=== PATIENT | male | born 1955 | race Caucasian/White ===

== ENCOUNTER 2016-05-30 00:22 | Day surgery (SDC) | payer BC ==
[~2016-05-30] VITALS: Ht 188 cm; Wt 102.1 kg
[2016-05-30] MEDS ORDERED: LIDOCAINE 2% JELLY 30 ML As Ordered ONE (01:21)
[2016-05-30] MEDS ORDERED: CIPROFLOXACIN/D5W 400 MG/200 ML BAG (J0744) As Ordered ONE (02:10)
[2016-05-30] MEDS ORDERED: PROPOFOL 200 MG/20 ML VIAL As Ordered ONE (02:29)
[2016-05-30] MEDS ORDERED: LIDOCAINE 2% INJ 100 MG/5 ML SDV (FOR ANES.) As Ordered ONE (02:29)
[2016-05-30] MEDS ORDERED: MIDAZOLAM INJ 2 MG/2 ML VIAL (J2250) As Ordered ONE (02:29)
[2016-05-30] MEDS ORDERED: fentaNYL 100 MCG/2 ML INJECTION (J3010) As Ordered ONE (02:29)
[2016-05-30] MEDS ORDERED: ONDANSETRON 4MG/2ML VIAL (J2405) As Ordered ONE (02:36)
[2016-05-30] MEDS ORDERED: dexameTHASONE 4 MG/ML 1ML VIAL (J1100) As Ordered ONE (02:36)
[2016-05-30] MEDS ORDERED: LR 1,000 ML IV SCH ×2 (03:15→04:00)
[2016-05-30] MEDS ORDERED: fentaNYL 100 MCG/2 ML INJECTION (J3010) IV PRN (03:15)
[2016-05-30] MEDS ORDERED: ONDANSETRON 4MG/2ML VIAL (J2405) IV PRN ×2 (03:15→04:00)
[2016-05-30] MEDS ORDERED: PERCOCET 5MG/325MG TAB PO PRN (03:15)
[2016-05-30 03:45] VITALS: BP 135/78
--- NOTE | 2016-05-30 04:01 | CR ---
DATE OF CONSULTATION: 05/30/2016 This 60-year-old male was evaluated in consultation as requested by Dr. Colvin on 05/30/2016, for acute urinary retention. He was transferred from [facility] following presentation with acute urinary retention at 1400 hours (05/29/2016). Multiple attempts at Tee catheter insertion by the emergency department staff there were unsuccessful. A bladder ultrasound (05/29/2016) recorded greater than 2000 mL of urine. Prior to presentation, he has a 1-year history of worsening obstructive urinary symptoms that have been followed by urology in [place]. He is status post transurethral resection of the prostate (2013). There is no history of gross hematuria, urinary tract infection, urolithiasis, flank pain, or constitutional symptoms. PAST MEDICAL HISTORY: Transurethral prostate resection and bilateral inguinal hernia repair. REVIEW OF SYSTEMS: Negative for diabetes, hypertension, cardiac or pulmonary pathology, thyroid problems, headaches, epilepsy, CVA, glaucoma, peptic ulcer disease, urolithiasis, cholelithiasis, or blood borne diseases. He is on no medications and has no allergies to medications. Socially, he is single. He is a nonsmoker who consumes alcohol socially. FAMILY HISTORY: Significant for skin cancer in siblings and colon cancer on the maternal side. GENERAL EXAMINATION: Revealed a comfortable individual. His heart rate was 101, his respiratory rate was 16, blood pressure was 170/105 and temperature was 98.1 degrees Fahrenheit. Palpation to head and neck failed to reveal the presence of lymphadenopathy. Upon auscultation, chest was clear. Normal heart sounds. Examination of the back and abdomen were benign. Bilateral inguinal scars were noted, reflective of his prior surgery. Suprapubic fullness was noted. Urine and serum hematologic and biochemical indices determination have not been obtained. In the supine position, the patient was prepped and draped in the usual fashion. An attempted insertion of an 18-Serbian Coude catheter and filiform was unsuccessful in the emergency department. A suspected bladder neck contracture is noted. Given these findings, it was elected to abort further attempts. At the conclusion of the procedure, sponge and instrument counts were correct. Estimated blood loss of procedure was 0 mL. ASSESSMENT: 1. Acute urinary retention. 2. History of transurethral prostate resection. PLAN: The above findings were discussed with the patient, nursing staff and emergentologist. Following nothing by mouth status (1530 hours), cystoscopy, possible transurethral incision of the bladder neck and Tee catheter insertion will be performed under anesthesia. Following the procedure, he may be discharged home with Tee catheter to straight drainage. He will followup with his urologist in 1-2 weeks for Tee catheter removal. Should you require additional information, please do not hesitate to contact me. Thank you for the confidence of your referral.
[2016-05-30 04:15] VITALS: BP 135/79
[2016-05-30 04:45] VITALS: BP 127/72
[2016-05-30 05:45] VITALS: BP 126/70
--- NOTE | 2016-05-30 07:26 | RO ---
DATE OF PROCEDURE: 05/30/2016 PREOPERATIVE DIAGNOSES: 1. Acute urinary retention. 2. Status post transurethral prostate resection. POSTOPERATIVE DIAGNOSES: 1. Acute urinary retention. 2. Status post transurethral prostate resection. PROCEDURE: Cystoscopy, #18 Wallisian Levelock catheter insertion. SURGEON: Dr. Andrez Mansfield ROOTER OPERATOR: ANESTHESIA: Laryngeal mask airway (LMA). COMPLICATIONS: None. ESTIMATED BLOOD LOSS: 0 mL. FINDINGS: 1. Minimally resected prostate. 2. Bilobed prostate with high bladder neck. 3. Moderate to severe bladder trabeculation. 4. Greater than 2 liters of clear urine. PROCEDURE: In lithotomy position, the patient was prepped and draped in the usual fashion. A #22 Wallisian cystoscope was advanced into the urinary bladder under direct vision. Despite prior transurethral prostate resection, a minimally resected prostate was noted. A bilobed prostate was present with a ? high bladder neck. No bladder neck contracture was noted. Upon entry into the urinary bladder, urine specimen for culture and sensitivity was obtained. Greater than 2000 mL of clear urine drained. Pittman cystoscopy revealed normal ureteric orifices bilaterally and normal urothelium. There was no evidence of tumor, active bleeding, or urolithiasis. Moderate severe bladder trabeculation was noted. Under direct vision, a 0.35 glide wire was advanced into the urinary bladder. The cystoscope was withdrawn and an #18 Wallisian Levelock tip catheter was advanced into the urinary bladder without complication. A clear urine effluent was noted. At the conclusion of the procedure, sponge and instrument counts were correct. Estimated blood loss for the procedure was 0 mL. In the recovery room, the patient was alert and stable. DISPOSITION: Tee catheter to straight drainage. Exit prescription (ciprofloxacin) provided. Followup with urology in one to two weeks for voiding trial.
[2016-05-30 08:00] VITALS: BP 138/70
== END 2016-05-30 10:30 | disposition home or self-care (01) ==
LOC: M ED 00:22 → M OROP 01:30 → M PED 03:44 → M OROP 10:30
PROVIDERS: ATTEND Urology
DX: R33.8 Other retention of urine (principal); Z98.890 Other specified postprocedural states; N40.0 Benign prostatic hyperplasia without lower urinary tract symptoms
CPT/HCPCS: 52000; 87086; 99283; J0744; J1100; J2250; J2405; J3010

== ENCOUNTER 2016-07-10 09:41 | Emergency (ER) | payer BC ==
[2016-07-10] MEDS ORDERED: LIDOCAINE 2% JELLY 30 ML As Ordered ONE ×2 (09:56→10:19)
[2016-07-10] MEDS ORDERED: ONDANSETRON 4MG/2ML VIAL (J2405) As Ordered ONE (09:59)
[2016-07-10] MEDS ORDERED: MORPHINE 4 MG/ML 1ML SYRINGE As Ordered ONE (09:59)
[2016-07-10 10:05] LABS: BASO % 0.3 % (0.0-1.0); EOS # 0.1 K/mm3 (0.0-0.50); EOS % 0.8 % (0.0-3.0); LARGE UNSTAINED CELL # 0.1 K/mm3 (0.0-0.4); LARGE UNSTAINED CELL % 0.5 % (0.0-4.0); LYMPH % 10.6 % (24.0-44.0); MEAN CORPUSCULAR HEMOGLOBIN 31.9 pg (27.0-33.0); MEAN CORPUSCULAR HGB CONC 34.4 g/dl (32.0-36.5); MEAN CORPUSCULAR VOLUME 92.7 fl (80.0-96.0); MONO # 0.3 K/mm3 (0.0-0.8); MONO % 2.6 % (0.0-5.0); NEUTROPHILS % 85.1 % (36.0-66.0); PLATELET COUNT, AUTOMATED 147 k/mm3 (150-450); WHITE BLOOD COUNT 9.4 K/mm3 (4.0-10.0)
[2016-07-10 10:21] LABS: ANION GAP 11 MEQ/L (8-16); BLOOD UREA NITROGEN 15 MG/DL (7-18); CALCIUM LEVEL 8.9 MG/DL (8.8-10.2); CARBON DIOXIDE LEVEL 25 MEQ/L (21-32); CHLORIDE LEVEL 106 MEQ/L (98-107); CREATININE FOR GFR 1.06 MG/DL (0.70-1.30); GLOMERULAR FILTRATION RATE > 60.0 (>49); GLUCOSE, FASTING 118 MG/DL (80-110); POTASSIUM SERUM 3.8 MEQ/L (3.5-5.1); SODIUM LEVEL 142 MEQ/L (136-145)
[2016-07-10] MEDS ORDERED: ceFAZolin 1GM INJ (J0690) As Ordered ONE (10:27)
--- NOTE | 2016-07-10 12:57 | EDDOCDS ---
Physician Documentation [facility] Name: José Esparza Age: 60 yrs Sex: Male : 1955 Arrival Date: 07/10/2016 Time: 09:41 Bed 9 Private MD: Disposition: 07/10/16 12:11 Discharged to Home/Self Care. Impression: Other retention of urine. - Condition is Stable. - Discharge Instructions: Urinary Retention, Acute, Male. - Prescriptions for Cipro 500 mg Oral Tablet - take 1 tablet by ORAL route every 12 hours; 10 tablet. - Medication Reconciliation, Local Pharmacy Hours form. - Follow up: Private Physician; When: Call to arrange an appointment; Reason: Continuance of care. - Problem is chronic. - Symptoms have improved. Historical: - Allergies: no known allergies; - Home Meds: 1. none - PMHx: BPH; - PSHx: TURP; Cystography, Retrograde; - Social history: Smoking status: Patient states was never smoker of tobacco. No barriers to communication noted, The patient speaks fluent Albanian. - Family history: Not pertinent. - : The pt / caregiver states he / she is not on anticoagulants. Home medication list is obtained from the patient. - Exposure Risk Screening:: None identified. Vital Signs: 07/10 09:53 BP 175 / 101; Pulse 74; Resp 20; Temp 96.8(O); Pulse Ox 94% on R/A; Weight 102.06 kg / ja5 225 lbs; Height 6 ft. 2 in. (187.96 cm); Pain 8/10; 10:44 Pain 0/10; ja5 12:36 BP 137 / 75; Pulse 64; Resp 18; Temp 99.0(O); Pulse Ox 96% on R/A; Pain 0/10; nb2 12:52 BP 132 / 86; Pulse 68; Resp 16; Temp 98(O); Pulse Ox 97% on R/A; Pain 0/10; bcj 09:53 Body Mass Index 28.89 (102.06 kg, 187.96 cm) ja5 MDM: 09:47 IV Saline Lock ordered. fg 09:47 Basic Metabolic Profile Ordered. EDMS 09:47 CBC with Diff Ordered. EDMS 09:59 morphine 4 mg IVP once ordered. fg 09:59 Ondansetron 4 mg IVP once ordered. fg 10:40 ceFAZolin 2 grams IVPB once over 30 mins; dilute in 50mL of NS or D5W ordered. ja5 10:55 UA Ordered. EDMS 10:55 Urine Culture Ordered. EDMS 11:16 Financial registration complete. [email or web address] 11:17 [facility] [place] Agreement was scanned into [employer] and attached to record. [email or web address] 11:23 Written Provider Order was scanned into [employer] and attached to record. ar3 12:20 REGULAR+DIET ordered. EDMS 12:37 Other: CONSENT FOR SURGERY was scanned into [employer] and attached to record. ar3 12:38 Other: CONSENT FOR SURGERY was scanned into [employer] and attached to record. ar3 Administered Medications: 10:00 Drug: morphine 4 mg [morphine 4 mg/mL intravenous cartridge (1 mL)] Route: IVP; Site: ja5 right antecubital; 10:44 Follow up: Pain 0/10 Adult ja5 10:05 Drug: Ondansetron 4 mg [ondansetron HCl 2 mg/mL intravenous solution (2 mL)] Route: ja5 IVP; Site: right antecubital; 10:40 Drug: ceFAZolin 2 grams [cefazolin 1 gram solution for injection] Route: IVPB; Infused ja5 Over: 30 mins; Site: right antecubital; 11:30 Follow up: IV Status: Completed infusion [facility] Signatures: Dispatcher [employer] Werner Mosley, RN RN bcPatricia Kilpatrick, PBX INSTALLER PBX INSTALLER ar3 Renee Green MD MD fg Sorenson, Kimberly, Reg Reg [email or web address] Estella Ocasio,RN RN [email or web address] The chart was reviewed and I authenticate all verbal orders and agree with the evaluation and treatment provided.Attachments: 11:17 [facility] Payment Agreement [email or web address] 11:23 Written Provider Order ar3 MTDD
--- NOTE | 2016-07-10 12:57 | EDDOCDS ---
Nurse's Notes [facility] Name: José Esparza Age: 60 yrs Sex: Male : 1955 Arrival Date: 07/10/2016 Time: 09:41 Bed 9 Private MD: Diagnosis: Other retention of urine Presentation: 07/10 09:47 Presenting complaint: EMS states: Patient picked up from [place] where he walked in ja5 with complaints of being unable to urinate. Patient was bladder scanned which read "greater than 999." [place] staff were unable to place a Cortes catheter to drain bladder so patient was transferred to [facility] for another attempt at draining bladder. Adult Sepsis Screening: The patient does not have new or worsening altered mentation. Patient's respiratory rate is less than 22. Systolic blood pressure is greater than 100. Patient has a qSOFA score of 0- Negative Sepsis Screen. Suicide/Homicide risk assessment- the patient denies having any suicidal and/or homicidal ideations and does not present with any other emotional, behavioral or mental health complaints. Status: Patient is not a sales and service officer or dependent. Transition of care: patient was not received from another setting of care. 09:47 Acuity: NATE Level 3 ja5 09:47 Method Of Arrival: Ambulance ja5 Triage Assessment: 09:53 General: Appears uncomfortable. Pain: Location: suprapubic area Pain currently is 8 out ja5 of 10 on a pain scale. HIV screening NA for this visit Offered previously. Historical: - Allergies: no known allergies; - Home Meds: 1. none - PMHx: BPH; - PSHx: TURP; Cystography, Retrograde; - Social history: Smoking status: Patient states was never smoker of tobacco. No barriers to communication noted, The patient speaks fluent Hebrew. - Family history: Not pertinent. - : The pt / caregiver states he / she is not on anticoagulants. Home medication list is obtained from the patient. - Exposure Risk Screening:: None identified. Screenin:55 Screening information is obtained from the patient. Fall risk: No risks identified. ja5 Assistance ADL's: requires no assistance with activities of daily living. Abuse/DV Screen: The patient / caregiver reports he/she is: not in a situation that causes fear, pain or injury. Nutritional screening: On no prescribed diet. Advance Directives: Currently, there is no health care proxy. There is no active DNR order. There is no living will. There is no Power of Family Preservation Caseworker. home support is adequate. Assessment: 09:58 General: Appears uncomfortable, Behavior is appropriate for age, cooperative. Pain: ja5 Location: suprapubic area Pain currently is 8 out of 10 on a pain scale. Neurological: Level of Consciousness is awake, alert, Oriented to person, place, time. Cardiovascular: Capillary refill < 3 seconds Heart tones S1 S2 present. Respiratory: Airway is patent Respiratory effort is even, unlabored, Breath sounds are clear bilaterally. : Bladder is distended. Derm: Skin is pink, warm & dry. 10:44 General: Dr. Carlos urologist in to catheterize patient; she used a filaform and a ja5 follower to obtained access to bladder and 1900 ml of urine was drained. During procedure patient is awake and alert, had even and unlabored with 02 sat 94%, HR in 70's SR on the regional service manager. After procedure patient stated he has no pain and is comfortable. Ancef infusing to right AC, bed in low position, call lemon in reach. . 10:49 : Reports inability to void since 9pm on 07/09/16. ja5 11:35 General: Patient has gotten cortes catheter leg bag secured to leg with no problems, ja5 patient states that it is comfortable. Patient has gotten dressed, bedding was changed after procedure. Patient states that he has no pain and has expressed his relief after the procedure. . 12:23 General: Patient sitting up, awake and alert, in chair with no complaints of pain. Leg ja5 bag cortes catheter in place, 700ml of blood tinged urine output drained from bag. Respirations are even and unlabored, O2 sats 96% on RA, patients color is pink. Patient states that he has no needs at this time. . 12:52 General: Appears in no apparent distress, comfortable, Behavior is cooperative. Pain: bcj Denies pain. : Cortes in place to gravity drainage Urine is blood tinged. Derm: Skin is pink, warm & dry. Vital Signs: 09:53 BP 175 / 101; Pulse 74; Resp 20; Temp 96.8(O); Pulse Ox 94% on R/A; Weight 102.06 kg; ja5 Height 6 ft. 2 in. (187.96 cm); Pain 8/10; 10:44 Pain 0/10; ja5 12:36 BP 137 / 75; Pulse 64; Resp 18; Temp 99.0(O); Pulse Ox 96% on R/A; Pain 0/10; nb2 12:52 BP 132 / 86; Pulse 68; Resp 16; Temp 98(O); Pulse Ox 97% on R/A; Pain 0/10; bcj 09:53 Body Mass Index 28.89 (102.06 kg, 187.96 cm) [facility] Vitals: 09:53 Log In Time: July 10, 2016 at 09:50. 5 ED Course: 09:42 Patient visited by Patricia Fair PCA. ar3 09:42 Patient moved to Waiting ar3 09:43 Estella Ocasio,RN is Primary Nurse. ar3 09:43 Patient moved to 9 ar3 09:46 Renee Green MD is Attending Physician. fg 09:46 Patient visited by Renee Green MD. fg 09:51 Triage Initiated [facility] 09:57 The patient / caregiver is instructed regarding the plan of care and ED course. Patient srm has correct armband on for positive identification. Placed in gown. Bed in low position. Call light in reach. 09:57 Inserted saline lock: 20 gauge in right antecubital area and blood collected. srm 09:58 CBC with Diff Sent. srm 09:58 Basic Metabolic Profile Sent. srm 10:43 Patient visited by Estella Ocasio RN. ja5 11:16 cysto. Set up for procedure. Performed by Juli Carlos MD Monitored with cardiac bcj monitor, pulse ox, Patient tolerated well. 11:17 Patient visited by Werner Jackson RN. bcj 11:17 [facility] Payment Agreement was scanned into [employer] and attached to record. [email or web address] 11:23 Written Provider Order was scanned into [employer] and attached to record. ar3 12:19 Primary Nurse role handed off by Estella Ocasio,RN ml6 12:23 Estella Ocasio,RN is Primary Nurse. ja5 12:37 Patient visited by Phyllis Ospina. nb2 12:37 Other: CONSENT FOR SURGERY was scanned into [employer] and attached to record. ar3 12:38 Other: CONSENT FOR SURGERY was scanned into [employer] and attached to record. ar3 12:52 No apparent distress. Resting quietly. Awaiting disposition. bcj 12:52 Discontinued lock intact. j 12:55 Patient visited by Werner Jackson RN. [facility] Administered Medications: 10:00 Drug: morphine 4 mg [morphine 4 mg/mL intravenous cartridge (1 mL)] Route: IVP; Site: ja5 right antecubital; 10:44 Follow up: Pain 0/10 Adult ja5 10:05 Drug: Ondansetron 4 mg [ondansetron HCl 2 mg/mL intravenous solution (2 mL)] Route: ja5 IVP; Site: right antecubital; 10:40 Drug: ceFAZolin 2 grams [cefazolin 1 gram solution for injection] Route: IVPB; Infused ja5 Over: 30 mins; Site: right antecubital; 11:30 Follow up: IV Status: Completed infusion bcj Order Results: Lab Order: Basic Metabolic Profile; SPEC'M 07/10/16 09:55 Test: GLUCOSE, FASTING; Value: 118; Range: 80-110; Abnormal: Above high normal; Units: MG/DL; Status: F Test: BLOOD UREA NITROGEN; Value: 15; Range: 7-18; Units: MG/DL; Status: F Test: CREATININE FOR GFR; Value: 1.06; Range: 0.70-1.30; Units: MG/DL; Status: F Test: GLOMERULAR FILTRATION RATE; Value: > 60.0; Range: >49; Status: F Test: SODIUM LEVEL; Value: 142; Range: 136-145; Units: MEQ/L; Status: F Test: POTASSIUM SERUM; Value: 3.8; Range: 3.5-5.1; Units: MEQ/L; Status: F Test: CHLORIDE LEVEL; Value: 106; Range: 98-107; Units: MEQ/L; Status: F Test: CARBON DIOXIDE LEVEL; Value: 25; Range: 21-32; Units: MEQ/L; Status: F Test: ANION GAP; Value: 11; Range: 8-16; Units: MEQ/L; Status: F Test: CALCIUM LEVEL; Value: 8.9; Range: 8.8-10.2; Units: MG/DL; Status: F Test Note: ; Units are mL/min/1.73 m2 Chronic Kidney Disease Staging per NKF: Stage I & II GFR >=60 Normal to Mildly Decreased Stage III GFR 30-59 Moderately Decreased Stage IV GFR 15-29 Severely Decreased Stage V GFR <15 Very Little GFR Left ESRD GFR <15 on BULK PIGMENT REDUCER Lab Order: CBC with Diff; WISAM 07/10/16 09:55 Test: WHITE BLOOD COUNT; Value: 9.4; Range: 4.0-10.0; Units: K/mm3; Status: F Test: RED BLOOD COUNT; Value: 4.94; Range: 4.30-6.10; Units: M/mm3; Status: F Test: HEMOGLOBIN; Value: 15.8; Range: 14.0-18.0; Units: g/dl; Status: F Test: HEMATOCRIT; Value: 45.9; Range: 42.0-52.0; Units: %; Status: F Test: MEAN CORPUSCULAR VOLUME; Value: 92.7; Range: 80.0-96.0; Units: fl; Status: F Test: MEAN CORPUSCULAR HEMOGLOBIN; Value: 31.9; Range: 27.0-33.0; Units: pg; Status: F Test: MEAN CORPUSCULAR HGB CONC; Value: 34.4; Range: 32.0-36.5; Units: g/dl; Status: F Test: RED CELL DISTRIBUTION WIDTH; Value: 13.0; Range: 11.5-14.5; Units: %; Status: F Test: PLATELET COUNT, AUTOMATED; Value: 147; Range: 150-450; Abnormal: Below low normal; Units: k/mm3; Status: F Test: NEUTROPHILS %; Value: 85.1; Range: 36.0-66.0; Abnormal: Above high normal; Units: %; Status: F Test: LYMPH %; Value: 10.6; Range: 24.0-44.0; Abnormal: Below low normal; Units: %; Status: F Test: MONO %; Value: 2.6; Range: 0.0-5.0; Units: %; Status: F Test: EOS %; Value: 0.8; Range: 0.0-3.0; Units: %; Status: F Test: BASO %; Value: 0.3; Range: 0.0-1.0; Units: %; Status: F Test: LARGE UNSTAINED CELL %; Value: 0.5; Range: 0.0-4.0; Units: %; Status: F Test: NEUTROPHILS #; Value: 8.0; Range: 1.8-7.7; Abnormal: Above high normal; Units: K/mm3; Status: F Test: LYMPH #; Value: 1.0; Range: 1.5-4.5; Abnormal: Below low normal; Units: K/mm3; Status: F Test: MONO #; Value: 0.3; Range: 0.0-0.8; Units: K/mm3; Status: F Test: EOS #; Value: 0.1; Range: 0.0-0.50; Units: K/mm3; Status: F Test: BASO #; Value: 0.0; Range: 0.0-0.2; Units: K/mm3; Status: F Test: LARGE UNSTAINED CELL #; Value: 0.1; Range: 0.0-0.4; Units: K/mm3; Status: F Lab Order: UA; SPEC'M 07/10/16 10:58 Test: APPEARANCE, URINE; Value: CLEAR; Range: CLEAR; Status: F Test: COLOR, URINE; Value: RED; Range: YELLOW; Abnormal: Above high normal; Status: F Test: PH,URINE; Value: 6.0; Range: 5.0-9.0; Units: UNITS; Status: F Test: SPECIFIC GRAVITY URINE AUTO; Value: 1.004; Range: 1.002-1.035; Status: F Test: PROTEIN, URINE AUTO; Value: 2+; Range: NEGATIVE; Abnormal: Above high normal; Units: mg/dL; Status: F Test: GLUCOSE, URINE (UA) AUTO; Value: NEGATIVE; Range: NEGATIVE; Units: mg/dL; Status: F Test: KETONE, URINE AUTO; Value: NEGATIVE; Range: NEGATIVE; Units: mg/dL; Status: F Test: UROBILINOGEN, URINE AUTO; Value: 0.2; Range: 0.0-2.0; Units: mg/dL; Status: F Test: BILIRUBIN, URINE AUTO; Value: NEGATIVE; Range: NEGATIVE; Status: F Test: NITRITE, URINE AUTO; Value: NEGATIVE; Range: NEGATIVE; Status: F Test: LEUKOCYTE ESTERASE, URINE AUTO; Value: NEGATIVE; Range: NEGATIVE; Status: F Test: BLOOD, URINE BLOOD; Value: 3+; Range: NEGATIVE; Abnormal: Above high normal; Status: F Test: WBC, URINE AUTO; Value: 10; Range: 0-3; Abnormal: Above high normal; Units: /HPF; Status: F Test: RBC, URINE AUTO; Value: TNTC; Range: 0-3; Abnormal: Above high normal; Units: /HPF; Status: F Test: BACTERIA, URINE AUTO; Value: 1+; Range: NEGATIVE; Abnormal: Above high normal; Status: F Test: SQUAMOUS EPITHELIAL CELL UR AU; Value: 0; Range: 0-6; Units: /HPF; Status: F Test: MUCUS, URINE; Value: SMALL; Range: NEGATIVE; Status: F Test: HYALINE CAST, URINE AUTO; Value: 0; Range: 0-1; Units: /LPF; Status: F Test: AMORPHOUS SEDIMENT; Value: SMALL; Range: NEGATIVE; Abnormal: Above high normal; Status: F Outcome: 12:11 Discharge ordered by Provider. fg 12:52 Discharge Assessment: patient administered narcotics - yes. Pt provided with safe j discharge. The following High Risk Discharge criteria are identified: None. Discharged to home ambulatory, with family. Condition: stable. Discharge instructions given to patient, Instructed on discharge instructions, follow up and referral plans. medication usage, Prescriptions given X 1. Instructed on cortes catheter care. No special radiology studies were completed. Property :Personal belongings accompany Pt. 12:56 Patient left the ED. [facility] Signatures: Werner Jackson RN RN bcj Michelson, Staci RN Pan Fonseca RN RN ml6 Patricia Fair, GLASS ROBOT OPERATOR GLASS ROBOT OPERATOR ar3 Renee Green MD MD fg Sorenson, Kimberly, Reg Reg [email or web address] Phyllis Ospina nb2 Estella Ocasio,RN RN [email or web address] Corrections: (The following items were deleted from the chart) 10:53 10:44 General: Dr. Carlos urologist in to catherize patient; she used a filaform and a ja5 follower to obtained access to bladder and 1900 ml of urine was drained. After procedure patient stated he has no pain and is comfortable. Ancef infusing to right AC, bed in low position, call lemon in reach. . ja5 12:29 12:26 General: Patient has gotten cortes catheter leg bag secured to leg with no ja5 problems, patient states that it is comfortable. Patient has gotten dressed, bedding was changed after procedure. Patient states that he has no pain and has expressed his relief after the procedure. . ja5 MTDD
--- NOTE | 2016-07-10 13:07 | CR ---
UROLOGIC CONSULTATION DATE OF CONSULTATION: 07/10/2016 REASON FOR CONSULTATION: Transfer from [facility] with urinary obstruction and inability to place a Tee catheter. HISTORY OF PRESENT ILLNESS: The patient is a 60-year-old gentleman who went to [facility] after being unable to urinate since 09:00 p.m. last night. They attempted to place at least two Tee catheters while he was there and were unable to. They, therefore, called; and I accepted him for transfer for urologic intervention. The patient has a longstanding history of benign prostatic hypertrophy (BPH) and is treated in [place] by Dr. Gio Hagan. He has a history of a transurethral resection of prostate (TURP) in 2013. Since that time, he does not take medications for his prostate but does complain of a slow stream and hesitancy at times. He has nocturia times two usually. He denies any significant urgency during the day but can have frequency every hour. He denies any history of kidney stones, family history of prostate cancer, gross hematuria, or other issues. He believes that his prostate-specific antigen (PSA) levels have been within normal limits. He believes his PSA levels have been around 6-7, and he has had prostate biopsies which are negative. His PSA levels have been stable, according to the patient. The patient did have an episode of urinary retention on 05/30/2016, and he was seen at [facility] by Dr. Mansfield. He was unable to place a catheter at the bedside, so the patient was brought to the operating room. A cystoscopy showed an obstructing prostate with very minimally resected tissue and a high bladder neck. He was able to place a Councill tip over a wire. PAST MEDICAL HISTORY: BPH and urinary retention. PAST SURGICAL HISTORY: Double hernia repair, history of prostate biopsy, TURP , and colonoscopy. MEDICATIONS: None. ALLERGIES: No known drug allergies. FAMILY HISTORY: No family history of prostate cancer. REVIEW OF SYSTEMS: A 12-system review is in the chart, and this was essentially negative. He has had no nausea, vomiting, fever, or chills. He has had no costovertebral angle (CVA) tenderness. He has had no abdominal pain or diarrhea or constipation. There was no change before the urinary retention with the use of different medications, etc. He has had no burning with urination or problems with recurrent urinary tract infections. PHYSICAL EXAMINATION: This is a well-developed, well-nourished gentleman lying in a hospital bed, extremely uncomfortable because of acute urinary retention. He is alert and oriented times three. His temperature is 98.5, pulse is 75, respirations 18, and his blood pressure is 138/70. His eyes are pupils equal, round, reactive to light and accommodation and extraocular movements intact (EOMI). His neck is supple. He has no CVA tenderness. His heart has a regular rate and rhythm His lungs are clear to auscultation and percussion. His abdomen is distended in the suprapubic region and tender to touch. His phallus is circumcised, and his testicles are bilaterally descended. He has no significant cyanosis, clubbing, or edema. LABORATORY DATA: His white blood count is 9.4. His hemoglobin and hematocrit is 15.8 over 45.9. His platelets are 147. His BUN is 15, and his creatinine is 1.06. A urinalysis after I am able to place the catheter shows too numerous to count red blood cells and 10 white blood cells per high power field. A urine culture from 05/30/2016 had shown no growth. I discussed these findings at length with José, and we decided to try to place a catheter in the emergency room and do local cystoscopy. We discussed exactly how this was going to be done and what to expect both pre- and postprocedurally. Informed consent was obtained in both verbal and written form. We did also get consent to place a suprapubic catheter if need be. PROCEDURE: At this point, I attempted to place a coude catheter, and it seemed to go all the way to the hub and did not feel like it was coiled, but there was no return of urine. At this point, I was able to place a 4-Maori filiform followed by a 12-Maori follower, and I was able to place this without any difficulty. I went all the way up to a 20-Maori follower and was able to a empty the patient's bladder of 1900 mL. He felt significant relief. At this point, he was prepped and draped, and a flexible cystoscope was inserted. The urethra was noted to be open without any evidence of lesions or strictures. The prostatic urethra with extremely bloody with obstruction, but I could not see directly. I did not appreciate any definite bladder neck contraction and neither did Dr. Mansfield; but, again, my visualization was very low. Upon entering the bladder, I just placed a wire and then a 16-Maori Councill tip catheter over this. The patient continued to drain urine without any difficulty, and he tolerated the procedure well. He was given Ancef 2 grams prior to this procedure and also morphine 4 mg. IMPRESSION: 1. Acute urinary retention with 1900 mL in his bladder with inability to place the catheter easily, but I was able to place a wire and Councill tip catheter after filiforms and followers. 2. History of benign prostatic hypertrophy with a transurethral resection of prostate in 2013 but most likely with continued obstruction and a very elevated bladder neck. PLAN: 1. Send urine for urinalysis, culture and sensitivity today; and he will be sent home with Cipro 500 mg by mouth twice a day until the culture results are back. 2. Continue Tee catheter drainage to both a leg bag and a night bag. 3. The patient does have an appointment with his urologist in [place], Dr. Gio Hagan, I believe, this coming Tuesday; and he will discuss further treatment management with him. At least 100 minutes was spent with this patient, and greater than 50% was in [id number] consultation.
--- NOTE | 2016-07-12 13:57 | EDDOCDS ---
Physician Documentation [facility] Name: José Esparza Age: 60 yrs Sex: Male : 1955 Arrival Date: 07/10/2016 Time: 09:41 Bed 9 Private MD: Disposition: 07/10/16 12:11 Discharged to Home/Self Care. Impression: Other retention of urine. - Condition is Stable. - Discharge Instructions: Urinary Retention, Acute, Male. - Prescriptions for Cipro 500 mg Oral Tablet - take 1 tablet by ORAL route every 12 hours; 10 tablet. - Medication Reconciliation, Local Pharmacy Hours form. - Follow up: Private Physician; When: Call to arrange an appointment; Reason: Continuance of care. - Problem is chronic. - Symptoms have improved. Historical: - Allergies: no known allergies; - Home Meds: 1. none - PMHx: BPH; - PSHx: TURP; Cystography, Retrograde; - Social history: Smoking status: Patient states was never smoker of tobacco. No barriers to communication noted, The patient speaks fluent Occitan. - Family history: Not pertinent. - : The pt / caregiver states he / she is not on anticoagulants. Home medication list is obtained from the patient. - Exposure Risk Screening:: None identified. Vital Signs: 07/10 09:53 BP 175 / 101; Pulse 74; Resp 20; Temp 96.8(O); Pulse Ox 94% on R/A; Weight 102.06 kg / ja5 225 lbs; Height 6 ft. 2 in. (187.96 cm); Pain 8/10; 10:44 Pain 0/10; ja5 12:36 BP 137 / 75; Pulse 64; Resp 18; Temp 99.0(O); Pulse Ox 96% on R/A; Pain 0/10; nb2 12:52 BP 132 / 86; Pulse 68; Resp 16; Temp 98(O); Pulse Ox 97% on R/A; Pain 0/10; bcj 09:53 Body Mass Index 28.89 (102.06 kg, 187.96 cm) ja5 MDM: 09:47 IV Saline Lock ordered. fg 09:47 Basic Metabolic Profile Ordered. EDMS 09:47 CBC with Diff Ordered. EDMS 09:59 morphine 4 mg IVP once ordered. fg 09:59 Ondansetron 4 mg IVP once ordered. fg 10:40 ceFAZolin 2 grams IVPB once over 30 mins; dilute in 50mL of NS or D5W ordered. ja5 10:55 UA Ordered. EDMS 10:55 Urine Culture Ordered. EDMS 11:16 Financial registration complete. [email or web address] 11:17 [facility] Payment Agreement was scanned into [employer] and attached to record. [email or web address] 11:23 Written Provider Order was scanned into [employer] and attached to record. ar3 12:20 REGULAR+DIET ordered. EDMS 12:37 Other: CONSENT FOR SURGERY was scanned into [employer] and attached to record. ar3 12:38 Other: CONSENT FOR SURGERY was scanned into [employer] and attached to record. ar3 14:38 T-Sheet-- Draft Copy was scanned into [employer] and attached to record. gb Administered Medications: 10:00 Drug: morphine 4 mg [morphine 4 mg/mL intravenous cartridge (1 mL)] Route: IVP; Site: ja5 right antecubital; 10:44 Follow up: Pain 0/10 Adult ja5 10:05 Drug: Ondansetron 4 mg [ondansetron HCl 2 mg/mL intravenous solution (2 mL)] Route: ja5 IVP; Site: right antecubital; 10:40 Drug: ceFAZolin 2 grams [cefazolin 1 gram solution for injection] Route: IVPB; Infused ja5 Over: 30 mins; Site: right antecubital; 11:30 Follow up: IV Status: Completed infusion [facility] Signatures: Dispatcher [employer] EDWerner Jennings RN RN bcj Peyton Buitrago, Reg Reg gb Patricia Fair, MIXED CROP AND LIVESTOCK FARMER MIXED CROP AND LIVESTOCK FARMER ar3 Renee Green MD MD fg Sorenson, Kimberly, Reg Reg ks16 Estella Ocasio,RN RN ja5 The chart was reviewed and I authenticate all verbal orders and agree with the evaluation and treatment provided.Attachments: 11:17 [facility] Payment Agreement [email or web address] 11:23 Written Provider Order ar3 14:38 T-Sheet-- Draft Copy gb Chart Complete MTDD
--- NOTE | 2016-07-12 13:57 | EDDOCDS ---
Physician Documentation [facility] Name: José Esparza Age: 60 yrs Sex: Male : 1955 Arrival Date: 07/10/2016 Time: 09:41 Bed 9 Private MD: Disposition: 07/10/16 12:11 Discharged to Home/Self Care. Impression: Other retention of urine. - Condition is Stable. - Discharge Instructions: Urinary Retention, Acute, Male. - Prescriptions for Cipro 500 mg Oral Tablet - take 1 tablet by ORAL route every 12 hours; 10 tablet. - Medication Reconciliation, Local Pharmacy Hours form. - Follow up: Private Physician; When: Call to arrange an appointment; Reason: Continuance of care. - Problem is chronic. - Symptoms have improved. Historical: - Allergies: no known allergies; - Home Meds: 1. none - PMHx: BPH; - PSHx: TURP; Cystography, Retrograde; - Social history: Smoking status: Patient states was never smoker of tobacco. No barriers to communication noted, The patient speaks fluent Greenlandic. - Family history: Not pertinent. - : The pt / caregiver states he / she is not on anticoagulants. Home medication list is obtained from the patient. - Exposure Risk Screening:: None identified. Vital Signs: 07/10 09:53 BP 175 / 101; Pulse 74; Resp 20; Temp 96.8(O); Pulse Ox 94% on R/A; Weight 102.06 kg / ja5 225 lbs; Height 6 ft. 2 in. (187.96 cm); Pain 8/10; 10:44 Pain 0/10; ja5 12:36 BP 137 / 75; Pulse 64; Resp 18; Temp 99.0(O); Pulse Ox 96% on R/A; Pain 0/10; nb2 12:52 BP 132 / 86; Pulse 68; Resp 16; Temp 98(O); Pulse Ox 97% on R/A; Pain 0/10; bcj 09:53 Body Mass Index 28.89 (102.06 kg, 187.96 cm) ja5 MDM: 09:47 IV Saline Lock ordered. fg 09:47 Basic Metabolic Profile Ordered. EDMS 09:47 CBC with Diff Ordered. EDMS 09:59 morphine 4 mg IVP once ordered. fg 09:59 Ondansetron 4 mg IVP once ordered. fg 10:40 ceFAZolin 2 grams IVPB once over 30 mins; dilute in 50mL of NS or D5W ordered. ja5 10:55 UA Ordered. EDMS 10:55 Urine Culture Ordered. EDMS 11:16 Financial registration complete. [email or web address] 11:17 [facility] Payment Agreement was scanned into [employer] and attached to record. [email or web address] 11:23 Written Provider Order was scanned into [employer] and attached to record. ar3 12:20 REGULAR+DIET ordered. EDMS 12:37 Other: CONSENT FOR SURGERY was scanned into [employer] and attached to record. ar3 12:38 Other: CONSENT FOR SURGERY was scanned into [employer] and attached to record. ar3 14:38 T-Sheet-- Draft Copy was scanned into [employer] and attached to record. gb Administered Medications: 10:00 Drug: morphine 4 mg [morphine 4 mg/mL intravenous cartridge (1 mL)] Route: IVP; Site: ja5 right antecubital; 10:44 Follow up: Pain 0/10 Adult ja5 10:05 Drug: Ondansetron 4 mg [ondansetron HCl 2 mg/mL intravenous solution (2 mL)] Route: ja5 IVP; Site: right antecubital; 10:40 Drug: ceFAZolin 2 grams [cefazolin 1 gram solution for injection] Route: IVPB; Infused ja5 Over: 30 mins; Site: right antecubital; 11:30 Follow up: IV Status: Completed infusion [facility] Signatures: Dispatcher [employer] EDWerner Jennings RN RN bcj Peyton Buitrago, Reg Reg gb Patricia Fair, DIRECTOR STATISTICAL PROGRAMMING DIRECTOR STATISTICAL PROGRAMMING ar3 Renee Green MD MD fg Sorenson, Kimberly, Reg Reg ks16 Estella Ocasio,RN RN ja5 The chart was reviewed and I authenticate all verbal orders and agree with the evaluation and treatment provided.Attachments: 11:17 [facility] Payment Agreement [email or web address] 11:23 Written Provider Order ar3 14:38 T-Sheet-- Draft Copy gb Chart Complete MTDD
--- NOTE | 2016-07-12 13:57 | EDDOCDS ---
Nurse's Notes Name: José Esparza Age: 60 yrs Sex: Male : 1955 Arrival Date: 07/10/2016 Time: 09:41 Bed 9 Private MD: Diagnosis: Other retention of urine Presentation: 07/10 09:47 Presenting complaint: EMS states: Patient picked up from [facility] where he walked in ja5 with complaints of being unable to urinate. Patient was bladder scanned which read "greater than 999." [facility] staff were unable to place a Cortes catheter to drain bladder so patient was transferred to [facility] for another attempt at draining bladder. Adult Sepsis Screening: The patient does not have new or worsening altered mentation. Patient's respiratory rate is less than 22. Systolic blood pressure is greater than 100. Patient has a qSOFA score of 0- Negative Sepsis Screen. Suicide/Homicide risk assessment- the patient denies having any suicidal and/or homicidal ideations and does not present with any other emotional, behavioral or mental health complaints. Status: Patient is not a employment service specialist or dependent. Transition of care: patient was not received from another setting of care. 09:47 Acuity: NATE Level 3 ja5 09:47 Method Of Arrival: Ambulance ja5 Triage Assessment: 09:53 General: Appears uncomfortable. Pain: Location: suprapubic area Pain currently is 8 out ja5 of 10 on a pain scale. HIV screening NA for this visit Offered previously. Historical: - Allergies: no known allergies; - Home Meds: 1. none - PMHx: BPH; - PSHx: TURP; Cystography, Retrograde; - Social history: Smoking status: Patient states was never smoker of tobacco. No barriers to communication noted, The patient speaks fluent Ukrainian. - Family history: Not pertinent. - : The pt / caregiver states he / she is not on anticoagulants. Home medication list is obtained from the patient. - Exposure Risk Screening:: None identified. Screenin:55 Screening information is obtained from the patient. Fall risk: No risks identified. ja5 Assistance ADL's: requires no assistance with activities of daily living. Abuse/DV Screen: The patient / caregiver reports he/she is: not in a situation that causes fear, pain or injury. Nutritional screening: On no prescribed diet. Advance Directives: Currently, there is no health care proxy. There is no active DNR order. There is no living will. There is no Power of Cottrell Blower. home support is adequate. Assessment: 09:58 General: Appears uncomfortable, Behavior is appropriate for age, cooperative. Pain: ja5 Location: suprapubic area Pain currently is 8 out of 10 on a pain scale. Neurological: Level of Consciousness is awake, alert, Oriented to person, place, time. Cardiovascular: Capillary refill < 3 seconds Heart tones S1 S2 present. Respiratory: Airway is patent Respiratory effort is even, unlabored, Breath sounds are clear bilaterally. : Bladder is distended. Derm: Skin is pink, warm & dry. 10:44 General: Dr. Carlos urologist in to catheterize patient; she used a filaform and a ja5 follower to obtained access to bladder and 1900 ml of urine was drained. During procedure patient is awake and alert, had even and unlabored with 02 sat 94%, HR in 70's SR on the property assessment monitor. After procedure patient stated he has no pain and is comfortable. Ancef infusing to right AC, bed in low position, call lemon in reach. . 10:49 : Reports inability to void since 9pm on 07/09/16. ja5 11:35 General: Patient has gotten cortes catheter leg bag secured to leg with no problems, ja5 patient states that it is comfortable. Patient has gotten dressed, bedding was changed after procedure. Patient states that he has no pain and has expressed his relief after the procedure. . 12:23 General: Patient sitting up, awake and alert, in chair with no complaints of pain. Leg ja5 bag cortes catheter in place, 700ml of blood tinged urine output drained from bag. Respirations are even and unlabored, O2 sats 96% on RA, patients color is pink. Patient states that he has no needs at this time. . 12:52 General: Appears in no apparent distress, comfortable, Behavior is cooperative. Pain: bcj Denies pain. : Cortes in place to gravity drainage Urine is blood tinged. Derm: Skin is pink, warm & dry. Vital Signs: 09:53 BP 175 / 101; Pulse 74; Resp 20; Temp 96.8(O); Pulse Ox 94% on R/A; Weight 102.06 kg; ja5 Height 6 ft. 2 in. (187.96 cm); Pain 8/10; 10:44 Pain 0/10; ja5 12:36 BP 137 / 75; Pulse 64; Resp 18; Temp 99.0(O); Pulse Ox 96% on R/A; Pain 0/10; nb2 12:52 BP 132 / 86; Pulse 68; Resp 16; Temp 98(O); Pulse Ox 97% on R/A; Pain 0/10; bcj 09:53 Body Mass Index 28.89 (102.06 kg, 187.96 cm) [facility] Vitals: 09:53 Log In Time: July 10, 2016 at 09:50. 5 ED Course: 09:42 Patient visited by Patricia Fair PCA. ar3 09:42 Patient moved to Waiting ar3 09:43 Estella Ocasio,RN is Primary Nurse. ar3 09:43 Patient moved to 9 ar3 09:46 Renee Green MD is Attending Physician. fg 09:46 Patient visited by Renee Green MD. fg 09:51 Triage Initiated [facility] 09:57 The patient / caregiver is instructed regarding the plan of care and ED course. Patient srm has correct armband on for positive identification. Placed in gown. Bed in low position. Call light in reach. 09:57 Inserted saline lock: 20 gauge in right antecubital area and blood collected. srm 09:58 CBC with Diff Sent. srm 09:58 Basic Metabolic Profile Sent. srm 10:43 Patient visited by Estella Ocasio RN. ja5 11:16 cysto. Set up for procedure. Performed by Juli Carlos MD Monitored with cardiac bcj monitor, pulse ox, Patient tolerated well. 11:17 Patient visited by Werner Jackson RN. bcj 11:17 [facility] Payment Agreement was scanned into [employer] and attached to record. [id number] 11:23 Written Provider Order was scanned into [employer] and attached to record. ar3 12:19 Primary Nurse role handed off by Estella Ocasio,RN ml6 12:23 Estella Ocasio,RN is Primary Nurse. ja5 12:37 Patient visited by Phyllis Ospina. nb2 12:37 Other: CONSENT FOR SURGERY was scanned into [employer] and attached to record. ar3 12:38 Other: CONSENT FOR SURGERY was scanned into [employer] and attached to record. ar3 12:52 No apparent distress. Resting quietly. Awaiting disposition. j 12:52 Discontinued lock intact. j 12:55 Patient visited by Werner Jackson RN. [facility] 14:38 T-Sheet-- Draft Copy was scanned into [employer] and attached to record. gb Administered Medications: 10:00 Drug: morphine 4 mg [morphine 4 mg/mL intravenous cartridge (1 mL)] Route: IVP; Site: ja5 right antecubital; 10:44 Follow up: Pain 0/10 Adult ja5 10:05 Drug: Ondansetron 4 mg [ondansetron HCl 2 mg/mL intravenous solution (2 mL)] Route: ja5 IVP; Site: right antecubital; 10:40 Drug: ceFAZolin 2 grams [cefazolin 1 gram solution for injection] Route: IVPB; Infused ja5 Over: 30 mins; Site: right antecubital; 11:30 Follow up: IV Status: Completed infusion [facility] Order Results: Lab Order: Basic Metabolic Profile; [facility]' 07/10/16 09:55 Test: GLUCOSE, FASTING; Value: 118; Range: 80-110; Abnormal: Above high normal; Units: MG/DL; Status: F Test: BLOOD UREA NITROGEN; Value: 15; Range: 7-18; Units: MG/DL; Status: F Test: CREATININE FOR GFR; Value: 1.06; Range: 0.70-1.30; Units: MG/DL; Status: F Test: GLOMERULAR FILTRATION RATE; Value: > 60.0; Range: >49; Status: F Test: SODIUM LEVEL; Value: 142; Range: 136-145; Units: MEQ/L; Status: F Test: POTASSIUM SERUM; Value: 3.8; Range: 3.5-5.1; Units: MEQ/L; Status: F Test: CHLORIDE LEVEL; Value: 106; Range: 98-107; Units: MEQ/L; Status: F Test: CARBON DIOXIDE LEVEL; Value: 25; Range: 21-32; Units: MEQ/L; Status: F Test: ANION GAP; Value: 11; Range: 8-16; Units: MEQ/L; Status: F Test: CALCIUM LEVEL; Value: 8.9; Range: 8.8-10.2; Units: MG/DL; Status: F Test Note: ; Units are mL/min/1.73 m2 Chronic Kidney Disease Staging per NKF: Stage I & II GFR >=60 Normal to Mildly Decreased Stage III GFR 30-59 Moderately Decreased Stage IV GFR 15-29 Severely Decreased Stage V GFR <15 Very Little GFR Left ESRD GFR <15 on [employer]AP[employer] Lab Order: CBC with Diff; PRETTY'M 07/10/16 09:55 Test: WHITE BLOOD COUNT; Value: 9.4; Range: 4.0-10.0; Units: K/mm3; Status: F Test: RED BLOOD COUNT; Value: 4.94; Range: 4.30-6.10; Units: M/mm3; Status: F Test: HEMOGLOBIN; Value: 15.8; Range: 14.0-18.0; Units: g/dl; Status: F Test: HEMATOCRIT; Value: 45.9; Range: 42.0-52.0; Units: %; Status: F Test: MEAN CORPUSCULAR VOLUME; Value: 92.7; Range: 80.0-96.0; Units: fl; Status: F Test: MEAN CORPUSCULAR HEMOGLOBIN; Value: 31.9; Range: 27.0-33.0; Units: pg; Status: F Test: MEAN CORPUSCULAR HGB CONC; Value: 34.4; Range: 32.0-36.5; Units: g/dl; Status: F Test: RED CELL DISTRIBUTION WIDTH; Value: 13.0; Range: 11.5-14.5; Units: %; Status: F Test: PLATELET COUNT, AUTOMATED; Value: 147; Range: 150-450; Abnormal: Below low normal; Units: k/mm3; Status: F Test: NEUTROPHILS %; Value: 85.1; Range: 36.0-66.0; Abnormal: Above high normal; Units: %; Status: F Test: LYMPH %; Value: 10.6; Range: 24.0-44.0; Abnormal: Below low normal; Units: %; Status: F Test: MONO %; Value: 2.6; Range: 0.0-5.0; Units: %; Status: F Test: EOS %; Value: 0.8; Range: 0.0-3.0; Units: %; Status: F Test: BASO %; Value: 0.3; Range: 0.0-1.0; Units: %; Status: F Test: LARGE UNSTAINED CELL %; Value: 0.5; Range: 0.0-4.0; Units: %; Status: F Test: NEUTROPHILS #; Value: 8.0; Range: 1.8-7.7; Abnormal: Above high normal; Units: K/mm3; Status: F Test: LYMPH #; Value: 1.0; Range: 1.5-4.5; Abnormal: Below low normal; Units: K/mm3; Status: F Test: MONO #; Value: 0.3; Range: 0.0-0.8; Units: K/mm3; Status: F Test: EOS #; Value: 0.1; Range: 0.0-0.50; Units: K/mm3; Status: F Test: BASO #; Value: 0.0; Range: 0.0-0.2; Units: K/mm3; Status: F Test: LARGE UNSTAINED CELL #; Value: 0.1; Range: 0.0-0.4; Units: K/mm3; Status: F Lab Order: UA; SPEC'M 07/10/16 10:58 Test: APPEARANCE, URINE; Value: CLEAR; Range: CLEAR; Status: F Test: COLOR, URINE; Value: RED; Range: YELLOW; Abnormal: Above high normal; Status: F Test: PH,URINE; Value: 6.0; Range: 5.0-9.0; Units: UNITS; Status: F Test: SPECIFIC GRAVITY URINE AUTO; Value: 1.004; Range: 1.002-1.035; Status: F Test: PROTEIN, URINE AUTO; Value: 2+; Range: NEGATIVE; Abnormal: Above high normal; Units: mg/dL; Status: F Test: GLUCOSE, URINE (UA) AUTO; Value: NEGATIVE; Range: NEGATIVE; Units: mg/dL; Status: F Test: KETONE, URINE AUTO; Value: NEGATIVE; Range: NEGATIVE; Units: mg/dL; Status: F Test: UROBILINOGEN, URINE AUTO; Value: 0.2; Range: 0.0-2.0; Units: mg/dL; Status: F Test: BILIRUBIN, URINE AUTO; Value: NEGATIVE; Range: NEGATIVE; Status: F Test: NITRITE, URINE AUTO; Value: NEGATIVE; Range: NEGATIVE; Status: F Test: LEUKOCYTE ESTERASE, URINE AUTO; Value: NEGATIVE; Range: NEGATIVE; Status: F Test: BLOOD, URINE BLOOD; Value: 3+; Range: NEGATIVE; Abnormal: Above high normal; Status: F Test: WBC, URINE AUTO; Value: 10; Range: 0-3; Abnormal: Above high normal; Units: /HPF; Status: F Test: RBC, URINE AUTO; Value: TNTC; Range: 0-3; Abnormal: Above high normal; Units: /HPF; Status: F Test: BACTERIA, URINE AUTO; Value: 1+; Range: NEGATIVE; Abnormal: Above high normal; Status: F Test: SQUAMOUS EPITHELIAL CELL UR AU; Value: 0; Range: 0-6; Units: /HPF; Status: F Test: MUCUS, URINE; Value: SMALL; Range: NEGATIVE; Status: F Test: HYALINE CAST, URINE AUTO; Value: 0; Range: 0-1; Units: /LPF; Status: F Test: AMORPHOUS SEDIMENT; Value: SMALL; Range: NEGATIVE; Abnormal: Above high normal; Status: F Lab Order: Urine Culture; SPEC'M [id number] 10:58 Test: URINE CULTURE; Value: <EXTERNAL COMMENT eCWMed> FULL REPORT IN LAB NOTES (eCW and Medent).; Status: F Test: URINE CULTURE; Value: URINE CULTURE RESULT NO GROWTH; Status: F Outcome: 12:11 Discharge ordered by Provider. fg 12:52 Discharge Assessment: patient administered narcotics - yes. Pt provided with safe j discharge. The following High Risk Discharge criteria are identified: None. Discharged to home ambulatory, with family. Condition: stable. Discharge instructions given to patient, Instructed on discharge instructions, follow up and referral plans. medication usage, Prescriptions given X 1. Instructed on cortes catheter care. No special radiology studies were completed. Property :Personal belongings accompany Pt. 12:56 Patient left the ED. [facility] Signatures: Werner Jackson RN RN bcj Michelson, Staci RN RN [facility] [place], Pey[place], Reg Reg gb Pan Ram RN RN ml6 Patricia Fair, LOG YARD DERRICK OPERATOR LOG YARD DERRICK OPERATOR ar3 Renee Green MD MD Zoey Haque, Reg Reg [id number] Phyllis Ospina nb2 Estella Ocasio RN RN [email or web address] Corrections: (The following items were deleted from the chart) 10:53 10:44 General: Dr. Carlos urologist in to catherize patient; she used a filaform and a ja5 follower to obtained access to bladder and 1900 ml of urine was drained. After procedure patient stated he has no pain and is comfortable. Ancef infusing to right AC, bed in low position, call lemon in reach. . kaleb 12:29 12:26 General: Patient has gotten cortes catheter leg bag secured to leg with no ja5 problems, patient states that it is comfortable. Patient has gotten dressed, bedding was changed after procedure. Patient states that he has no pain and has expressed his relief after the procedure. . kaleb Chart Complete MTDD
== END 2016-07-10 12:56 | disposition home or self-care (01) ==
LOC: M ED 09:41
DX: R33.9 Retention of urine, unspecified (principal); N40.0 Benign prostatic hyperplasia without lower urinary tract symptoms
CPT/HCPCS: 36415; 52000; 80048; 81001; 85025; 87086; 96365; 96375; 99285; J0690; J2405

== ENCOUNTER 2016-09-26 13:18 | Emergency (ER) | payer BC ==
[~2016-09-26] VITALS: Ht 188 cm; Wt 99.8 kg
[2016-09-26] MEDS ORDERED: FINA5TAB2 PO (13:32)
[2016-09-26] MEDS ORDERED: FLOM5CAP PO (13:32)
[2016-09-26 15:35] VITALS: BP 140/71
== END 2016-09-26 15:37 | disposition home or self-care (01) ==
LOC: M ED 13:53
DX: R33.9 Retention of urine, unspecified (principal); N40.1 Benign prostatic hyperplasia with lower urinary tract symptoms; Z79.899 Other long term (current) drug therapy

== ENCOUNTER 2024-12-11 13:26 | Inpatient (IN) | payer MEDICARE ==
[~2024-12-11] VITALS: Ht 188 cm; Wt 93.8 kg
[~2024-12-11 13:26] MED LIST: FINA5TAB2 PO; TAMS-18 PO
[2024-12-11] MEDS ORDERED: MAALOX 30 ML SUSP *UDC PO PRN (15:30)
[2024-12-11] MEDS ORDERED: MOM 30 ML SUSPENSION UDC PO PRN (15:30)
[2024-12-11] MEDS ORDERED: SIMETHICONE 80MG CHEW TAB PO PRN (15:30)
[2024-12-11] MEDS ORDERED: BISACODYL 5 MG TAB PO PRN (15:30)
[2024-12-11 15:50] VITALS: BP 131/86; TEMP 98.8; O2SAT 94
[2024-12-11] MEDS ORDERED: ERGO500029 PO (17:00)
[2024-12-11] MEDS ORDERED: CENT1TAB PO (17:02)
[2024-12-11] MEDS ORDERED: ENOX80IN3 SC (17:10)
[2024-12-11] MEDS ORDERED: DOCU5LIQ PO (17:10)
[2024-12-11] MEDS ORDERED: ACET-907 PO (17:10)
[2024-12-11] MEDS ORDERED: VIMP50TA3 PO (17:12)
[2024-12-11] MEDS ORDERED: METO1TAB87 PO (17:12)
[2024-12-11] MEDS ORDERED: SENN-186 PO (17:12)
[2024-12-11] MEDS ORDERED: POLY17PO10 PO (17:14)
[2024-12-11] MEDS ORDERED: MELA3TAB29 PO (17:14)
[2024-12-11] MEDS ORDERED: KEPP1TAB PO ×2 (17:14→17:15)
[2024-12-11] MEDS ORDERED: LIDO4CRE12 TOP (17:18)
[2024-12-11] MEDS ORDERED: ASPE4PAD TOP (17:18)
[2024-12-11] MEDS ORDERED: TRAZ-186 PO (17:22)
[2024-12-11] MEDS ORDERED: HOME MED LIST COMPLETE! XX SCH (17:25)
[2024-12-11 19:25] VITALS: BP 106/63; TEMP 97.4; O2SAT 96
[2024-12-11] MEDS: SENNOSIDES/DOCUSATE SODIUM 8.6 MG/50MG TAB PO SCH (20:45)
[2024-12-11] MEDS: LACOSAMIDE 50 MG TAB PO SCH (20:45)
[2024-12-11] MEDS: RAMELTEON 8 MG TAB PO SCH (20:45)
[2024-12-11] MEDS: ENOXAPARIN 80 MG/0.8 ML SYRINGE (J1650 PER 10MG) SC SCH (20:46)
[2024-12-11] MEDS: METOPROLOL SUCC. 25 MG *XL* TAB PO SCH (20:47)
[2024-12-11] MEDS: LIDOCAINE 5% PATCH TD SCH (20:55)
[2024-12-12 04:00] VITALS: BP 121/70; TEMP 96.7; O2SAT 94
[2024-12-12 07:05] LABS: BASO # 0.0 10^3/uL (0.0-0.2); BASO % 0.3 % (0.0-1.0); EOS # 0.1 10^3/uL (0.0-0.5); EOS % 1.1 % (0.0-3.0); LYMPH # 1.1 10^3/uL (1.5-5.0); LYMPH % 18.4 % (24.0-44.0); MONO # 0.4 10^3/uL (0.0-0.8); MONO % 6.3 % (2.0-8.0); NEUTROPHILS # 4.5 10^3/uL (1.5-8.5); NEUTROPHILS % 73.6 % (36.0-66.0); PLATELET COUNT, AUTOMATED 183 10^3/uL (150-450)
[2024-12-12 07:29] LABS: ALT/SGPT 16 U/L (7.0-40); AST/SGOT 18 U/L (<34); CALCIUM LEVEL 8.6 MG/DL (8.3-10.6); CARBON DIOXIDE LEVEL 26 MMOL/L (20-31); CHLORIDE LEVEL 105 MMOL/L (98-107); CREATININE FOR GFR 0.90 MG/DL (0.70-1.30); GLOMERULAR FILTRATION RATE > 90.0 (>42); POTASSIUM SERUM 4.2 MMOL/L (3.5-5.1); SODIUM LEVEL 143 MMOL/L (136-145)
[2024-12-12] MEDS: MIRALAX *UNIT DOSE* 17 GM PACKET PO SCH (09:24)
[2024-12-12] MEDS: FINASTERIDE 5 MG TAB PO SCH (09:25)
[2024-12-12] MEDS: TAMSULOSIN 0.4 MG CAP PO SCH (09:26)
[2024-12-12 11:46] VITALS: BP 103/69; TEMP 97.2; O2SAT 98
[2024-12-12 20:31] VITALS: BP 118/81; TEMP 97.1; O2SAT 95
[2024-12-12 21:00] VITALS: BP 118/81; TEMP 97.1; O2SAT 95
[2024-12-12 22:00] VITALS: BP 118/81; TEMP 97.1; O2SAT 95
[2024-12-13 03:57] VITALS: BP 113/68; TEMP 97.6; O2SAT 94
[2024-12-13 04:01] VITALS: BP 113/68; TEMP 97.6; O2SAT 94
[2024-12-13 11:47] VITALS: BP 92/52; TEMP 98.2; O2SAT 95
[2024-12-13 20:00] VITALS: BP 105/72; TEMP 98.5; O2SAT 95
[2024-12-13] MEDS: ACETAMINOPHEN 500 MG TAB PO PRN (20:40)
[2024-12-14 04:00] VITALS: BP 94/55; TEMP 97; O2SAT 96
[2024-12-14 06:39] LABS: PLATELET COUNT, AUTOMATED 162 10^3/uL (150-450)
[2024-12-14 12:14] VITALS: BP 111/74; TEMP 97.4; O2SAT 99
[2024-12-14 19:32] VITALS: BP 104/65; TEMP 98; O2SAT 98
[2024-12-15 03:33] VITALS: BP 109/65; TEMP 97.3; O2SAT 94
[2024-12-15] MEDS: VITAMIN D 50,000 UNITS CAPSULE (ERGOCALCIFEROL 1.25MG) PO SCH (09:47)
[2024-12-15 12:00] VITALS: BP 111/65; TEMP 98; O2SAT 99
[2024-12-15 19:35] VITALS: BP 117/67; TEMP 98.5; O2SAT 96
[2024-12-16 03:39] VITALS: BP 127/71; TEMP 98.5; O2SAT 96
[2024-12-16 12:00] VITALS: BP 118/67; TEMP 97.7; O2SAT 97
[2024-12-16 20:00] VITALS: BP 114/76; TEMP 98.7; O2SAT 96
[2024-12-17 03:03] VITALS: BP 118/73; TEMP 98.3; O2SAT 95
[2024-12-17 08:04] LABS: PLATELET COUNT, AUTOMATED 192 10^3/uL (150-450)
[2024-12-17 11:35] VITALS: BP 111/65; TEMP 98.3; O2SAT 97
[2024-12-17 20:01] VITALS: BP 109/64; TEMP 98.4; O2SAT 94
[2024-12-17] MEDS: traZODone 25MG PER 1/2 TABLET PO PRN (20:12)
[2024-12-18 04:02] VITALS: BP 112/70; TEMP 97.4; O2SAT 95
[2024-12-18 11:58] VITALS: BP 105/63; TEMP 98.2; O2SAT 98
[2024-12-18 19:24] VITALS: BP 120/68; TEMP 97.7; O2SAT 96
[2024-12-19 03:25] VITALS: BP 129/73; TEMP 97.6; O2SAT 99
[2024-12-19 12:00] VITALS: BP 107/68; TEMP 97.1; O2SAT 94
[2024-12-19 20:00] VITALS: BP 108/65; TEMP 97.8; O2SAT 96
[2024-12-20 04:00] VITALS: BP 102/60; TEMP 98.3; O2SAT 96
[2024-12-20 07:15] LABS: PLATELET COUNT, AUTOMATED 173 10^3/uL (150-450)
[2024-12-20 07:55] VITALS: BP 100/62
[2024-12-20] MEDS: DICLOFENAC EPOLAMINE 1.3% PATCH TOP SCH (11:32)
[2024-12-20 12:00] VITALS: BP 113/64; TEMP 97.7; O2SAT 98
[2024-12-20 20:00] VITALS: BP 118/68; TEMP 97.3; O2SAT 97
[2024-12-21 04:00] VITALS: BP 132/82; TEMP 97.4; O2SAT 96
[2024-12-21 12:25] VITALS: BP 115/69; TEMP 97.2; O2SAT 98
[2024-12-21] MEDS ORDERED: FINA5TAB2 PO (14:56)
[2024-12-21] MEDS ORDERED: TRAZ-252 PO (14:56)
[2024-12-21] MEDS ORDERED: KEPP250T5 PO (14:56)
[2024-12-21] MEDS ORDERED: DICL1PAT6 TOP (14:56)
[2024-12-21] MEDS ORDERED: VIMP50TA3 PO (14:56)
[2024-12-21] MEDS ORDERED: METO1TAB32 PO (14:56)
[2024-12-21] MEDS ORDERED: XARE20TA PO (14:56)
[2024-12-21] MEDS ORDERED: TAMS-18 PO (14:56)
[2024-12-21] MEDS: RIVAROXABAN 20MG TAB PO SCH (18:19)
[2024-12-21 19:19] VITALS: BP 126/76; TEMP 98; O2SAT 97
[2024-12-22 03:05] VITALS: BP 123/73; TEMP 97.2; O2SAT 96
[2024-12-22 12:00] VITALS: BP 119/77; TEMP 98.3; O2SAT 96
[2024-12-22 19:50] VITALS: BP 113/69; TEMP 97.8; O2SAT 95
[2024-12-23 03:26] VITALS: BP 118/65; TEMP 97.4; O2SAT 93
[2024-12-23 07:11] LABS: PLATELET COUNT, AUTOMATED 169 10^3/uL (150-450)
[2024-12-23 11:56] VITALS: BP 128/75; TEMP 98.1; O2SAT 95
[2024-12-23 20:01] VITALS: BP 104/68; TEMP 97.8; O2SAT 95
[2024-12-24 04:10] VITALS: BP 135/75; TEMP 97.7; O2SAT 96
[2024-12-24 08:08] VITALS: BP 108/60
[2024-12-24] MEDS ORDERED: VIMP50TA3 PO (18:47)
== END 2024-12-24 11:20 | disposition home health service (06) | DRG 66 ==
LOC: M PM&R 15:50
PROVIDERS: ADMIT Physical Medicine & Rehabilitation; ATTEND Physical Medicine & Rehabilitation
DX: I60.11 Nontraumatic subarachnoid hemorrhage from right middle cerebral artery (principal); I48.0 Paroxysmal atrial fibrillation; R29.6 Repeated falls; Z74.1 Need for assistance with personal care; Z74.09 Other reduced mobility; H26.9 Unspecified cataract; G40.909 Epilepsy, unspecified, not intractable, without status epilepticus; I10 Essential (primary) hypertension; M25.551 Pain in right hip; N40.1 Benign prostatic hyperplasia with lower urinary tract symptoms; K59.00 Constipation, unspecified; D15.1 Benign neoplasm of heart; G47.00 Insomnia, unspecified; Z79.899 Other long term (current) drug therapy; Z95.828 Presence of other vascular implants and grafts; Z86.718 Personal history of other venous thrombosis and embolism

== ENCOUNTER 2025-04-13 11:18 | Emergency (ER) | payer BC, MEDICARE ==
[~2025-04-13] VITALS: Ht 188 cm; Wt 91.7 kg
[~2025-04-13 11:18] MED LIST changes: +ACET-907 PO; +ASPE4PAD TOP; +CENT1TAB PO; +DICL1PAT6 TOP; +DOCU5LIQ PO; +ENOX80IN3 SC; +ERGO500029 PO; +KEPP1TAB PO; +KEPP250T5 PO; +LIDO4CRE12 TOP; +MELA3TAB29 PO; +METO1TAB32 PO; +METO1TAB87 PO; +POLY17PO10 PO; +SENN-186 PO; +TRAZ-186 PO; +TRAZ-252 PO; +VIMP50TA3 PO; +XARE20TA PO
[2025-04-13] MEDS ORDERED: ATOR40TA75 PO (11:28)
[2025-04-13] MEDS ORDERED: AMIO200T55 (11:28)
[2025-04-13] MEDS ORDERED: ASPI81CH33 PO (11:28)
[2025-04-13] MEDS: OXYMETAZOLINE 0.05% NASAL SPRAY ONE (12:15)
[2025-04-13 14:05] LABS: BASO # 0.0 10^3/uL (0.0-0.2); BASO % 0.4 % (0.0-1.0); EOS # 0.3 10^3/uL (0.0-0.5); EOS % 2.6 % (0.0-3.0); LYMPH # 1.4 10^3/uL (1.5-5.0); LYMPH % 13.1 % (24.0-44.0); MONO # 0.5 10^3/uL (0.0-0.8); MONO % 5.2 % (2.0-8.0); NEUTROPHILS # 8.1 10^3/uL (1.5-8.5); NEUTROPHILS % 78.1 % (36.0-66.0); PLATELET COUNT, AUTOMATED 220 10^3/uL (150-450)
[2025-04-13 14:33] LABS: INR 2.37
[2025-04-13 14:40] LABS: CALCIUM LEVEL 8.8 MG/DL (8.3-10.6); CARBON DIOXIDE LEVEL 29.0 MMOL/L (20-31); CHLORIDE LEVEL 105.0 MMOL/L (98-107); CREATININE FOR GFR 1.12 MG/DL (0.70-1.30); GLOMERULAR FILTRATION RATE 70.7 (>42); POTASSIUM SERUM 4.1 MMOL/L (3.5-5.1); SODIUM LEVEL 143.0 MMOL/L (136-145)
[2025-04-13 16:15] VITALS: BP 151/84; TEMP 98.1; O2SAT 95
== END 2025-04-13 16:35 | disposition home or self-care (01) ==
LOC: M ED 11:18
DX: R04.0 Epistaxis (principal); I48.91 Unspecified atrial fibrillation; I10 Essential (primary) hypertension; N40.1 Benign prostatic hyperplasia with lower urinary tract symptoms; R33.9 Retention of urine, unspecified; Z86.718 Personal history of other venous thrombosis and embolism; Z86.79 Personal history of other diseases of the circulatory system; Z79.01 Long term (current) use of anticoagulants; Z79.82 Long term (current) use of aspirin; Z79.899 Other long term (current) drug therapy